=== PATIENT | female | born 1975 | race Caucasian/White ===

== ENCOUNTER 2023-11-28 08:46 | Emergency (ER) | payer MEDICAID ==
[~2023-11-28] VITALS: Ht 157.5 cm; Wt 57.0 kg
[2023-11-28 09:17] VITALS: O2SAT 100
[2023-11-28 12:19] VITALS: BP 122/82; PULSE 92; RESP 16; TEMP 98.5
== END 2023-11-28 13:06 | disposition home or self-care (01) ==
LOC: ER 08:46
DX: M54.10 Radiculopathy, site unspecified (principal); M54.2 Cervicalgia; M79.621 Pain in right upper arm; M25.511 Pain in right shoulder
CPT/HCPCS: 81025; 99284